=== PATIENT | male | born 1980 | race Caucasian/White ===

== ENCOUNTER 2017-06-11 05:38 | Day surgery (SDC) | payer BC ==
[~2017-06-11] VITALS: Ht 177.8 cm; Wt 104.3 kg
--- NOTE | ~2017-06-11 | OP ---
Record Of Operation [facility] [address] [place]. [address] NAME: RENNY FLORES : 84 STATUS : [facility]#: [id number] AGE: 37 ADM/REG DATE : 06/11/17 MR#: [id number] REPORT SERV DATE: 06/11/17 DICTATED BY: JANN CORDOVA DATE: 06/11/17 REPORT STATUS : Draft TRANSCRIBED BY: MYRON DATE: 06/11/17 DATE OF PROCEDURE: 06/11/2017 PREOPERATIVE DIAGNOSIS: Right-sided L4-5 and L5-S1 disk herniation, foraminal stenosis, lumbar radiculopathy. POSTOPERATIVE DIAGNOSIS: Right-sided L4-5 and L5-S1 disk herniation, foraminal stenosis, lumbar radiculopathy. PROCEDURES: Right-sided L4-5 and L5-S1 microdiskectomy, [employer], operative microscope, and intraoperative O-arm CT scan with computer navigation. ANESTHESIA: General. ESTIMATED BLOOD LOSS: 10 mL. COMPLICATIONS: None. INDICATIONS: The patient is a 37-year-old, with intractable right leg pain, failed conservative treatment. After discussion of risks and benefits, elected to proceed with surgery. PROCEDURE IN DETAIL: I identified the patient in the holding area, consent was obtained, went to the operating room, underwent general anesthesia with endotracheal intubation, prepped and draped in the usual sterile fashion, operative safety pause was performed, and then we proceeded with surgery. O-arm registration frame was placed in the iliac crest. O- arm was brought in for intraoperative CT scan. Computer registration materials were verified. Under computer guidance, a right longitudinal incision was made over the L4 to S1 and level taken down through the fascial layer. Tube dilators were used to minimally invasively dissect down to the right L4-5 interspace. Operative microscope was brought in. A sana was used to perform a laminotomy. Michelle performed a foraminotomy. Disk was incised with a knife and free disk material removed with pituitary. L4 and L5 nerves were free of compression. This was repeated again at the L5-S1 level. The L4 to S1 nerves were free of compression at the end the case. Irrigation was performed and hemostasis achieved. 40 mg Depo-Medrol injected over the nerve roots. Layered closure was performed. Sterile dressings were applied. The patient was awoken, extubated, and taken recovery room in stable condition. FINDINGS: Right-sided L4 to S1 disk herniation and stenosis. ABDELRAHMAN/MYRON Jann Cordova DO Record Of Operation [address] [address] NAME: RENNY FLORES : 84 STATUS : [facility] PAT#: [id number] AGE: 37 ADM/REG DATE : 06/11/17 MR#: [id number] REPORT SERV DATE: 06/11/17 DICTATED BY: JANN CORDOVA DATE: 06/11/17 REPORT STATUS : Draft TRANSCRIBED BY: MYRON DATE: 06/11/17 / [id number] CC: DO Lito Salvador MD
[~2017-06-11 05:38] MED LIST: ARIMIDEX1 PO; COZ50 PO; TRT
[2017-06-11 06:43] LABS: BUN (BLOOD UREA NITROGEN) 18 MG/DL (6-23); CHLORIDE, SERUM 105 MMOL/L (96-112); CO2 (CARBON DIOXIDE) 27 MMOL/L (24-34); CREATININE 1.03 MG/DL (0.70-1.30); GFR AFRICAN AMERICAN 109 ML/MIN (>=60); GFR NON AFRICAN AMERICAN 94 ML/MIN (>=60); GLUCOSE, SERUM 85 MG/DL (60-99); POTASSIUM, SERUM 4.1 MMOL/L (3.5-5.3); SODIUM, SERUM 139 MMOL/L (135-148)
== END 2017-06-11 11:00 | disposition home or self-care (01) ==
LOC: SDC 05:38
PROVIDERS: Orthopaedic Surgery
PROC: 01NB0ZZ Release Lumbar Nerve, Open Approach (ICD-10-PCS; principal; 2017-06-11 06:45)
DX: M51.16 Intervertebral disc disorders with radiculopathy, lumbar region (principal); M51.17 Intervertebral disc disorders with radiculopathy, lumbosacral region; M48.06 Spinal stenosis, lumbar region; I10 Essential (primary) hypertension; F17.210 Nicotine dependence, cigarettes, uncomplicated; Z90.89 Acquired absence of other organs; Z98.890 Other specified postprocedural states; Z79.899 Other long term (current) drug therapy
CPT/HCPCS: 80048; 88304; 88311; 93005; A9270-GY; J0690; J1030; J2250; J2405; J2710; J3010